=== PATIENT | male | born 1965 | race African-American/Black ===

== ENCOUNTER 2021-11-26 10:36 | Observation (INO) | payer OTHER, SELFPAY ==
[2021-11-26] VITALS (23 sets, daily range): BP systolic 142–189; BP diastolic 81–109; PULSE 66–79; RESP 10–22; TEMP 36.2–37.3; O2SAT 97–100; BMI 28.0
--- NOTE | 2021-11-26 | ECHO_ITS ---
Patient Info Name: Danny Stacy Age: 56 years : 1965 Gender: Male Ht: 70 in Wt: 192 lbs BSA: 2.09 m2 HR: 65 bpm BP: 169 / 107 mmHg Technical Quality: Good Exam Date: 11/26/2021 1:32 PM [facility] Patient Status: Outpatient Admit Date: 11/26/2021 Staff Ordering Physician: Gordo Spangler DO Drilling Contractor: Jose A Wang RDCS, RT Attending Provider: Howie Gutierrez MD Referring Physician: Aníbal BOLANOS; Exam Type: CA echo doppler color flow Study Info Indications I10 - Essential (primary) hypertension Complete two-dimensional, color flow and Doppler transthoracic echocardiogram is performed. Strain analysis performed. Summary 1. Complete two-dimensional, color flow and Doppler transthoracic echocardiogram is performed. 2. Left ventricular chamber dimension is normal. 3. Left ventricular systolic function is normal, estimated at 55-60%. 4. There is moderately increased left ventricular wall thickness. 5. The left ventricular diastolic function is grade I diastolic dysfunction. 6. E/e' 11 is mildly elevated. 7. Global longitudinal strain is abnormal at -11.7%. 8. Left atrial chamber dimension is mildly enlarged. 9. Right atrial chamber dimension is mildly enlarged. 10. There is mild mitral valve regurgitation. 11. There is trace tricuspid valve regurgitation. Left Ventricle E/e' 11 is mildly elevated. Global longitudinal strain is abnormal at -11.7%. Left ventricular chamber dimension is normal. Left ventricular systolic function is normal, estimated at 55-60%. There is moderately increased left ventricular wall thickness. The left ventricular diastolic function is grade I diastolic dysfunction. Right Ventricle Right ventricular systolic function is normal and with normal TAPSE 2.2 cm. Right ventricular chamber dimension is normal. Left Atria Left atrial chamber dimension is mildly enlarged. Right Atria Right atrial chamber dimension is mildly enlarged. Aortic Valve The aortic valve is trileaflet. There is no aortic valve stenosis. There is no aortic valve regurgitation. Pulmonic Valve There is no pulmonic regurgitation. Mitral Valve There is no mitral valve stenosis. There is mild mitral valve regurgitation. Tricuspid Valve RVSP is not calculated due to an inadequate TR jet. There is trace tricuspid valve regurgitation. Pericardium/Pleural There is no pericardial effusion. Inferior Vena Cava Normal inferior vena cava with >50% collapse upon inspiration consistent with normal right atrial pressure, 5 mmHg. Aorta The aortic root size at the sinus of Valsalva is normal. Left Ventricular Outflow Tract Name Value Normal LVOT 2D LVOT Diameter 2.3 cm LVOT Doppler LVOT Peak Gradient 3 mmHg LVOT Mean Gradient 2 mmHg LVOT VTI 18 cm LVOT VTI/AV VTI Ratio 0.8 LVOT Stroke Volume 74 ml LVOT CO 4.6 l/min LVOT CI 2.2 l/min/m2
--- NOTE | ~2021-11-26 | XR_ITS ---
EXAMINATION: XR chest 2V DATE: 11/26/2021 11:08 INDICATION: Intermittent midsternal chest pain. TECHNIQUE: Frontal and lateral views of the chest were obtained. COMPARISON: None. FINDINGS: There are lucencies in the lungs, consistent with emphysema. No pleural effusion or pneumot horax. The heart size is normal. 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 IMPRESSION: 1. Emphysema. Reviewed, dictated and finalized at location B. IMPRESSION: 1. Emphysema.
--- NOTE | 2021-11-26 10:48 | ECG_ITS ---
Measurements Intervals [place] Rate: 75 P: 45 CA: 187 QRS: 9 QRSD: 90 T: 189 QT: 386 QTc: 432 Interpretive Statements SINUS RHYTHM POSSIBLE LEFT ATRIAL ENLARGEMENT LEFT VENTRICULAR HYPERTROPHY AND ST-T CHANGE BORDERLINE ECG Electronically Signed On 11-26-2021 10:59:31 CDT by Gordo Spangler D.O.
--- NOTE | 2021-11-26 10:58 | ED.CHESTPAIN ---
HPI - Chest Pain General Chief Complaint: Chest Pain Stated Complaint: CP Time Seen by Provider: 11/26/21 10:58 Source: patient Mode of arrival: ambulatory Limitations: no limitations History of Present Illness HPI narrative: Patient is 56 years old -[place] male presents with intermittent chest pain over 6 months ago. Patient was seen by a family doctor for the first time 2 days ago and was told to go to the emergency room immediately, patient did not have a ride, and today found somebody to drop him off to the emergency room. Patient denies any difference between his chest pain today compared to yesterday or 6 months ago. Patient reports the pain comes anytime regardless what activity he is doing, and usually last maximum 3 minutes. The pain is heaviness tightness across the chest, radiating to the neck and upper back. Currently he is pain-free. He denies any fever, chills, nausea, vomiting, shortness of breath, respiratory symptoms. He smokes cigarettes and marijuana, drinks occasionally. Positive family history of coronary artery disease Related Data Allergies Allergy/AdvReac Type Severity Reaction Status Date / Time No Known Allergies Allergy Verified 11/26/21 10:48 Review of Systems Review of Systems: All systems reviewed & are unremarkable except as noted in HPI and below Exam Narrative: General appearance: Well-developed, well-nourished Skin: Normal color Head: Normocephalic, nontraumatic Eyes: Clear conjunctiva ENT: Oropharynx normal, ears normal, nose normal Neck: Supple, nontender Chest and respiratory: Airway patent, no respiratory distress, no accessory muscle use Heart: Regular rate/rhythm Abdomen: Soft, nontender, no organomegaly, quiet bowel sounds Vascular: Normal peripheral pulses, normal capillary refill. 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 Spangler Date: 11/26/21 Time: 11:30 Vital Signs Vital signs: Vital Signs Temperature 36.6 C 11/26/21 10:44 Pulse Rate 76 11/26/21 10:44 Respiratory Rate 18 11/26/21 10:44 Blood Pressure 181/109 H 11/26/21 10:44 Pulse Oximetry 100 11/26/21 10:44 Temperature 36.6 C 11/26/21 10:44 Pulse Rate 76 11/26/21 10:44 Respiratory Rate 18 11/26/21 10:44 Blood Pressure 181/109 H 11/26/21 10:44 Pulse Oximetry 100 11/26/21 10:44 MDM - Chest Pain Lab Data Result diagrams: 11/26/21 10:52 11/26/21 10:52 Labs: Lab Results 11/26/21 11/26/21 11/26/21 Range/Units 10:52 10:52 10:52 WBC 7.5 (4.5-10.0) K/mm3 RBC 4.79 (4.6-6.20) M/mm3 Hgb 13.9 L (14.0-18.0) g/dL Hct 44.2 (42.0-52.0) % MCV 92.3 (80-100) fl MCH 29.0 (26-34) pg MCHC 31.4 L (32-36) g/dl RDW 13.0 (11.5-14.5) % Plt Count 215 (150-375) k/mm3 MPV 10.5 H (7.4-10.4) fl Immature Gran % (Auto) 0.3 (0-0.5) % Neut % (Auto) 67.4 (45.5-73.1) % Lymph % (Auto) 22.0 (18.3-44.2) % [place] % (Auto) 9.1 H (2.6-8.5) % Eos % (Auto) 0.5 (0-4.4) % Baso % (Auto) 0.7 (0.2-1.2) % Lymph # (Auto) 1.64 (0.9-3.2) K/mm3 [place] # (Auto) 0.7 H (0.1-0.6) K/mm3 Eos # (Auto) 0.0 (0-0.3) K/mm3 Baso # (Auto) 0.1 (0.0-0.1) K/mm3 Abs Immat Gran (auto) 0.02 (0.00-0.031) K/mm3 Absolute Neuts (auto) 5.0 (1.3-6.7) K/mm3 Absolute Nucleated RBC 0.0 (0.0-0.012) K/mm3 Nucleated RBC % 0.0 (0.0-0.2) % PT 12.9 (11.1-14.7) Seconds INR 1.0 APTT 28.8 (22.3-36.8) SECONDS Sodium 138 (137-145) mmol/L Potassium 4.1 (3.4-5.0) mmol/
[2021-11-26 11:01] LABS: Basophils Absolute Auto 0.1 K/mm3 (0.0-0.1); Basophils Percent Auto 0.7 % (0.2-1.2); Eosinophils Percent Auto 0.5 % (0-4.4); Hematocrit 44.2 % (42.0-52.0); Hemoglobin 13.9 g/dL (14.0-18.0); Immature Granulocyte Absolute 0.02 K/mm3 (0.00-0.031); Immature Granulocyte Percent A 0.3 % (0-0.5); Lymphocytes Absolute Auto 1.64 K/mm3 (0.9-3.2); Mean Corpuscular HGB Conc 31.4 g/dl (32-36); Mean Corpuscular Volume 92.3 fl (80-100); Mean Platelet Volume 10.5 fl (7.4-10.4); Monocytes Absolute Auto 0.7 K/mm3 (0.1-0.6); Monocytes Percent Auto 9.1 % (2.6-8.5); Neutrophils Percent Auto 67.4 % (45.5-73.1); Platelet Count Result 215 k/mm3 (150-375); Red Blood Count 4.79 M/mm3 (4.6-6.20); White Blood Count 7.5 K/mm3 (4.5-10.0)
[2021-11-26 11:12] LABS: Partial Thromboplastin Time 28.8 SECONDS (22.3-36.8); Prothrombin Time 12.9 Seconds (11.1-14.7)
[2021-11-26 11:13] LABS: Alanine Aminotransferase 14 U/L (4-50); Albumin Level 4.4 g/dL (3.5-5.1); Alkaline Phosphatase 78 U/L (38-126); Anion Gap 5 mmol/L (8-16); Aspartate Amino Transferase 22 U/L (17-59); Bilirubin,Total 0.3 mg/dL (0.2-1.3); Blood Urea Nitrogen 15 mg/dL (9-20); Calcium 8.8 mg/dL (8.4-10.2); Carbon Dioxide 27 mmol/L (22-30); Chloride 106 mmol/L (98-107); Estimated CRCL calculation 76 ml/min; Estimated Glomerular Filt Rate > 60; Glucose 96 mg/dL (65-110); Lipase 39 U/L (23-300); Potassium 4.1 mmol/L (3.4-5.0); Sodium 138 mmol/L (137-145)
[2021-11-26 11:24] LABS: Troponin I < 0.012 ng/mL (0.000-0.034)
[2021-11-26] MEDS: ASPIRIN 81 MG CHEWABLE TABLET 324 MG PO (11:24)
[2021-11-26] MEDS: NITROGLYCERIN OINTMENT 1 INCH DOSE TRANSDERM (11:27)
[2021-11-26] MEDS: METOPROLOL TARTRATE INJ 5 MG/5 ML VIAL IV PUSH ×3 (11:28→12:28)
--- NOTE | 2021-11-26 11:57 | PM.CNCAR ---
Assessment and Plan Assessment and plan (1) Chest pain: Qualifiers: Chest pain type: unspecified Qualified Code(s): R07.9 - Chest pain, unspecified Code(s): R07.9 - Chest pain, unspecified Status: Acute Assessment and Plan: Differential includes costochondritis, CAD. Obtain Lipid panel. Serial troponin. If negative, obtain stress echo in AM. (2) Hypertension: Qualifiers: Hypertension type: unspecified Qualified Code(s): I10 - Essential (primary) hypertension Code(s): I10 - Essential (primary) hypertension Status: Acute Assessment and Plan: Received Metoprolol and NTG patch in ER. Start Losartan 100 mg daily. Monitor BP. Obtain echo. (3) Tobacco dependence: Code(s): F17.200 - Nicotine dependence, unspecified, uncomplicated Status: Acute Assessment and Plan: Counseled regarding smoking cessation. (4) COPD (chronic obstructive pulmonary disease): Qualifiers: COPD type: unspecified COPD Qualified Code(s): J44.9 - Chronic obstructive pulmonary disease, unspecified Code(s): J44.9 - Chronic obstructive pulmonary disease, unspecified Status: Acute History of Present Illness History of Present Illness Consult date/time: 11/26/21 11:57 Reason for consult: CP. 56 yr old man presents to ER with chest pain. His PCP is Dr. Sean Valdez. He has a history of hypertension, COPD, smoking. Reports he stopped taking BP medication in 2018 as he was not following up with his doctor. He reports intermittent sharp chest pain for last 6 months that occur randomly and primarily at rest. He can walk 1/2 mile without any problems. He smokes 5-6 cigarettes per day. Denies orthopnea, PND, edema, palpitations, dizziness. EKG: Sinus rhythm, LVH with ST-T changes, LAE. CXR: Emphysema. Trop 0. HB 13.9. Reason For Visit: CP Review of Systems Review of Systems: All systems reviewed & are unremarkable except as noted in HPI and below Constitutional: Constitutional: Reports as per HPI, Denies chills and Denies fever(s) Cardiovascular: Cardiovascular: Reports as per HPI, Reports chest pain, Denies irregular heart rhythm, Denies leg edema and Denies lightheadedness Respiratory: Respiratory: Reports as per HPI and Denies dyspnea Gastrointestinal: Gastrointestinal: Reports as per HPI and Denies abdominal pain Genitourinary: Genitourinary: Reports as per HPI and Denies dysuria Musculoskeletal: Musculoskeletal: Reports as per HPI Neurologic: Reports as per HPI, Denies dizziness and Denies syncope Meds Home Medications and Allergies Allergies Allergy/AdvReac Type Severity Reaction Status Date / Time No Known Allergies Allergy Verified 11/26/21 10:48 Vital Signs Vital Signs - 24 hr 11/26/21 10:44 11/26/21 11:28 Temperature 97.8 F Pulse Rate 76 71 Respiratory Rate 18 Blood Pressure 181/109 H Pulse Oximetry 100 Exam Const: General: cooperative, healthy appearing and comfortable Resp: Auscultation: clear to auscultation bilaterally, no crackles, no rales, no rhonchi and no wheezes Cardio: Jugular venous distension: no JVD Rate: regular rate Rhythm: regular rhythm Heart sounds: no murmurs Peripheral pulses: dorsalis pedis present GI: GI Palp: No abdominal tenderness and Yes Soft to palpation Neuro: General: oriented to person, oriented to place and oriented to time Extrem: Right lower extremity: no edema Left lower extremity: no edema Results Labs and Meds Result diagrams: 11/26/21 10:52 11/26/21 10:52 Lab results: Cardiac Enzymes 11/26/21 Range/Units 10:52 AST 22 (17-59) U/L Troponin I < 0.012 (0.000-0.034) ng/mL Coagulation 11/26/21 Range/Units 10:52 PT 12.9 (11.1-14.7) Seconds APTT 28.8 (22.3-36.8) SECONDS CBC 11/26/21 Range/Units 10:52 WBC 7.5 (4.5-10.0) K/mm3 RBC 4.79 (4.6-6.20) M/mm3 Hgb 13.9 L (14.0-18.0) g/dL H
[2021-11-26 12:54] LABS: Cholesterol 193 mg/dL (0-200); HDL Direct 53 mg/dL; Triglycerides 72 mg/dL (<150)
[2021-11-26 12:58] LABS: SARS-CoV-2 RNA PCR Negative
[2021-11-26 13:05] LABS: LDL Cholesterol Direct 98 mg/dL
[2021-11-26] MEDS: LOSARTAN POTASSIUM 100 MG TABLET PO (13:40)
--- NOTE | 2021-11-26 14:20 | ADMGEN ---
This patient, Danny Stacy, was admitted to IMU Room 205-02. Patient/family oriented to hospital policies and general routines including ID bracelet, bed and alarms, visiting hours, pain management, procedures, bathroom and other care routines, personal items, smoking policy, room service/diet, and visiting hours. Information on how to activate the Rapid Response Team has been discussed. Patient/Family are encouraged to report perceived risks to care and to ask questions if they do not understand what they are told or what they should do.
[2021-11-26 15:22] LABS: Troponin I < 0.012 ng/mL (0.000-0.034)
--- NOTE | 2021-11-26 16:00 | PM.IMHP ---
H&P: HPI History of Present Illness Date/Time: 11/26/21 16:00 Chief Complaint: Chest pain shortness of breath. Narrative: This is a pleasant 56-year-old male smoker with hypertension who presented to the emergency department for evaluation of intermittent chest pain and shortness of breath for the past 6 months. He stopped taking antihypertensives in 2018 as his blood pressures were reportedly better though he has not seen a physician since that time. He has been doing pretty well up until the last 6 months when he has developed intermittent and random mid chest pain that he describes as sharp in nature. The pain does occasionally radiate to the neck and upper back but it is self-limiting, usually not lasting any longer than a couple of minutes. He sees no pattern as to when it occurs and he has not specifically noticed that it occurs with exertion nor is it related to food. He also endorses shortness of breath though he goes on to say he can walk half a mile or so without any symptoms. He established care with Dr. Valdez 2 days ago at which time he was encouraged to come to the ER. He did not have a ride yesterday but was able to make it here today. EKG showed findings consistent with left ventricular hypertrophy and some nonspecific ST-T changes as well as suspected left atrial enlargement. Troponin has been negative thus far. Chest x-ray did demonstrate findings consistent with emphysema. At the time my evaluation he is resting comfortably and has no significant complaints aside from those listed above. Review of Systems Review of Systems: Twelve systems were reviewed. No syncope or presyncope. No fever, chills, or sweats. No recent cold or flu symptoms. He denies pleuritic pain and palpitations. No orthopnea, PND, or lower extremity edema. He has no known history of cardiac or pulmonary disease. No cough. No history of venous thromboembolism. Except as documented, all other systems were reviewed and are negative. [facility] Past Medical History Medical History Chronic obstructive pulmonary disease Emphysema on chest x-ray on 11/26/2021. Hypertension Tobacco dependence Surgical History Surgical History (Updated 11/26/21 @ 22:50 by Danita Clarke PA-C) History of open reduction and internal fixation (ORIF) procedure Left hand fracture. Family History Family History (Updated 11/26/21 @ 22:51 by Danita Clarke PA-C) Mother Cerebrovascular accident Father Cirrhosis Alcohol abuse Sibling Acute myocardial infarction Cancer Sibling Asthma Sibling Pulmonary embolism Social History Social History (Updated 11/26/21 @ 22:51 by Danita Clarke PA-C) Social History: Surrogate decision maker: Kenton Kenny, nephew. Code status: Full code. Smoking packs per day: 0.05 Smoking cigarettes per day: 1.0 Years smoked: 30 Smoking pack-years: 1.50 Smoking status: Current every day smoker Tobacco type: cigarettes Additional smoking assessment comments: Now smoking 5 to 6 cigarettes a day. Alcohol intake: current Drinks per week: 1 Substance use: current Substance use type: marijuana Spiritual care concerns: No Meds Home Medications and Allergies Home Medications Medication Instructions Recorded Confirmed Type No Home Medications 11/26/21 11/26/21 History Allergies Allergy/AdvReac Type Severity Reaction Status Date / Time No Known Allergies Allergy Verified 11/26/21 10:48 Vital Signs Vital Signs - 24 hr 11/26/21 10:44 11/26/21 10:45 11/26/21 10:46 Temperature 97.8 F Pulse Rate 78 79 79 Respiratory Rate 13 19 14 Blood Pressure 181/109 H 177/106 H 181/109 H Pulse Oximetry 97 100 98 11/26/21 10:47 11/26/21 11:00 11/26/21 11:01 Temperature Pulse Rate 76 78 78 Respiratory Rate 16 12 12 Blood Pressure 181/107 H Pulse Oximetry 98 100 99 11/26/21 11:15 11/26
[2021-11-26] MEDS: ACETAMINOPHEN 325 MG TABLET 650 MG PO (16:38)
[2021-11-26 17:40] LABS: Troponin I < 0.012 ng/mL (0.000-0.034)
[2021-11-27] VITALS (7 sets, daily range): BP systolic 151–187; BP diastolic 87–94; PULSE 67–84; RESP 12–16; TEMP 36.3–37.3; O2SAT 99
--- NOTE | 2021-11-27 06:00 | ECG_ITS ---
Measurements Intervals [place] Rate: 64 P: 46 CO: 191 QRS: 3 QRSD: 89 T: 184 QT: 402 QTc: 416 Interpretive Statements SINUS RHYTHM LEFT VENTRICULAR HYPERTROPHY AND ST-T CHANGE BORDERLINE ECG Electronically Signed On 11-27-2021 12:25:35 CDT by Gordo Spangler D.O.
--- NOTE | 2021-11-27 08:16 | PM.PNCARD ---
Progress Note: A&P Assessment and Plan (1) Chest pain: Qualifiers: Chest pain type: unspecified Qualified Code(s): R07.9 - Chest pain, unspecified Code(s): R07.9 - Chest pain, unspecified Status: Acute Assessment and Plan: Differential includes costochondritis, CAD. Lipid panel is normal. ND r/o by serial troponin and EKG. Obtain stress echo today. If negative, may d/c home from cardiology standpoing.. (2) Hypertension: Qualifiers: Hypertension type: unspecified Qualified Code(s): I10 - Essential (primary) hypertension Code(s): I10 - Essential (primary) hypertension Status: Acute Assessment and Plan: Received Metoprolol and NTG patch in ER. Echo on 11/26/21 EF 55-60%, mod LVH, grade I diastolic dysfunction (E/e' 11), mild MR/TR. Started Losartan 100 mg daily. Monitor BP. (3) Tobacco dependence: Code(s): F17.200 - Nicotine dependence, unspecified, uncomplicated Status: Acute Assessment and Plan: Counseled regarding smoking cessation. (4) COPD (chronic obstructive pulmonary disease): Qualifiers: COPD type: unspecified COPD Qualified Code(s): J44.9 - Chronic obstructive pulmonary disease, unspecified Code(s): J44.9 - Chronic obstructive pulmonary disease, unspecified Status: Acute Subjective Date/time seen: 11/27/21 08:16 Reports intermittent sharp chest pains at rest. No sob. Exam Const: General: cooperative, healthy appearing and comfortable Resp: Auscultation: clear to auscultation bilaterally, no crackles, no rales, no rhonchi and no wheezes Cardio: Jugular venous distension: no JVD Rate: regular rate Rhythm: regular rhythm Heart sounds: no murmurs Peripheral pulses: dorsalis pedis present GI: GI Palp: No abdominal tenderness and Yes Soft to palpation Neuro: General: oriented to person, oriented to place and oriented to time Extrem: Right lower extremity: no edema Left lower extremity: no edema Objective Data Vital Signs Vital Signs: Vital Signs - 24 hr 11/26/21 10:44 11/26/21 10:45 11/26/21 10:46 Temperature 97.8 F Pulse Rate 78 79 79 Respiratory Rate 13 19 14 Blood Pressure 181/109 H 177/106 H 181/109 H Pulse Oximetry 97 100 98 11/26/21 10:47 11/26/21 11:00 11/26/21 11:01 Temperature Pulse Rate 76 78 78 Respiratory Rate 16 12 12 Blood Pressure 181/107 H Pulse Oximetry 98 100 99 11/26/21 11:15 11/26/21 11:27 11/26/21 11:28 Temperature Pulse Rate 71 76 71 Respiratory Rate 16 22 H Blood Pressure 189/97 H Pulse Oximetry 100 100 11/26/21 11:30 11/26/21 11:31 11/26/21 11:45 Temperature Pulse Rate 69 70 72 Respiratory Rate 14 14 16 Blood Pressure 171/103 H Pulse Oximetry 100 99 100 11/26/21 12:00 11/26/21 12:01 11/26/21 12:15 Temperature Pulse Rate 68 70 67 Respiratory Rate 10 L 15 18 Blood Pressure 169/107 H Pulse Oximetry 100 100 100 11/26/21 12:28 11/26/21 14:11 11/26/21 14:55 Temperature 98.7 F Pulse Rate 70 67 67 Respiratory Rate 16 18 Blood Pressure 161/95 H 167/97 H Pulse Oximetry 100 100 11/26/21 16:00 11/26/21 18:00 11/26/21 20:00 Temperature 97.2 F L 99.2 F Pulse Rate 68 73 71 Respiratory Rate 16 20 Blood Pressure 167/93 H 142/81 H Pulse Oximetry 100 98 11/26/21 22:00 11/26/21 23:49 11/27/21 00:00 Temperature 98.5 F Pulse Rate 68 72 67 Respiratory Rate 12 12 Blood Pressure 153/92 H Pulse Oximetry 99 99 11/27/21 02:00 11/27/21 04:00 11/27/21 06:00 Temperature 97.8 F Pulse Rate 68 79 70 Respiratory Rate 12 Blood Pressure 151/93 H Pulse Oximetry 99 Intake/Output Intake/Output: Intake & Output 11/24/21 11/25/21 11/26/21 11/27/21 23:59 23:59 23:59 23:59 Intake Total 840 200 Balance 840 200 Meds/Results Medications: Active Medications Generic Name Dose Route Start Last Admin Trade Name Freq PRN Reason Stop Dose Admin Acetaminophen 650 mg 11/26/21
[2021-11-27] MEDS: ASPIRIN 81 MG CHEWABLE TABLET PO (08:34)
[2021-11-27] MEDS: LOSARTAN POTASSIUM 100 MG TABLET PO (08:34)
--- NOTE | 2021-11-27 09:00 | EST_ITS ---
Patient Info Name: Danny Stacy Age: 56 years : 1965 Gender: Male Ht: 70 in Wt: 192 lbs BSA: 2.09 m2 HR: 73 bpm BP: 175 / 67 mmHg Heart Rhythm: Sinus Rhythm Technical Quality: Good Exam Date: 11/27/2021 9:44 AM Exam Location: [facility] Pulmonary Exam Room: [facility] Patient Status: Outpatient Admit Date: 11/26/2021 Staff Ordering Physician: Gordo Spangler DO Report Analyst: Lorena Pruitt RDCS Attending Provider: Howie Gutierrez MD Referring Physician: Aníbal BOLANOS; Exercise Technologist: Shauna Swift CT Exercise Physician: Gordo Spangler DO Exam Type: CA stress echo Study Info Indications - chest pain Treadmill exercise stress echocardiogram is performed. Summary 1. 1. Negative Ken exercise stress test for ischemic ST changes by ECG criteria. Patient achieved 81% MPHR for age group which reduces sensitivity of the test. 2. 2. Reduced functional capacity, achieving 10 METs of workload. 3. 3. Baseline hypertension with hypertensive response to exercise. 4. 4. Appropriate HR response to exercise. 5. 5. Appropriate HR recovery at 1 minute post exercise. 6. 6. Negative stress echocardiogram for ischemia by wall motion analysis. 7. 7. Patient informed of the above results. Stress Echo Findings Left Ventricle Appropriate increase in LV endocardial thickening with systole. Appropriate augmenation of contractility with systole. No wall motion abnormality. Left Ventricle Normal LV systolic function, no wall motion abnormality. Protocol: [place] HR: 73 bpm Peak HR: 134 bpm Rest Sys BP: 175 mmHg Peak Sys BP: 250 mmHg Max Pred HR: 165 bpm % Max Pred HR: 81 % Target HR: 140 bpm Max RPP: 33,500 bpm*mmHg BP Response: Patient exhibited a hypertensive response with stress Termination Reason: Reached target heart rate or workload Cardiac Symptoms: Shortness of breath Max ST Seg Deviation: 73.00 mm Total Time: 7 min : 48 sec Rest Ferrer BP: 67 mmHg Peak Ferrer BP: 96 mmHg Total METS: 10.1 Resting ECG Sinus rhythm, LVH with ST-T changes. Stress ECG No ST changes. Arrhythmias None. Report Signatures Stress ECG Echo
--- NOTE | 2021-11-27 11:17 | PM.DS ---
DS: Admitting Diagnosis Discharge Date 11/27/2021 Admitting Diagnosis Chest pain DS: Discharge Diagnosis Discharge Diagnosis (1) Chest pain: Qualifiers: Chest pain type: unspecified Qualified Code(s): R07.9 - Chest pain, unspecified Code(s): R07.9 - Chest pain, unspecified Status: Acute Assessment and Plan: Patient reports intermittent chest pain and shortness of breath the past 6 months, atypical for cardiac pain. Troponin has been negative EKG showed LVH and ST-T changes. Echocardiogram shows diastolic dysfunction and left ventricular hypertrophy Probably related to hypertensive urgency Start aspirin 81 mg daily. Stress test negative Follow-up with cardiology as outpatient. (2) Shortness of breath: Code(s): R06.02 - Shortness of breath Status: Acute Assessment and Plan: May very well be related to emphysema and hypertensive urgency noted on imaging. Echocardiogram shows diastolic dysfunction no evidence of acute CHF exacerbation Smoking cessation is encouraged. Would benefit from pulmonology referral. 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 Counseling regarding smoking (4) Tobacco dependence: Code(s): F17.200 - Nicotine dependence, unspecified, uncomplicated Status: Acute Assessment and Plan: Smoking cessation is imperative and was discussed. He seems motivated to quit. (5) Hypertension: Qualifiers: Hypertension type: unspecified Qualified Code(s): I10 - Essential (primary) hypertension Code(s): I10 - Essential (primary) hypertension Status: Acute Assessment and Plan: Untreated hypertension may be the cause of some of his symptoms. Reinitiate medication as blood pressure has been as high as 189/97. Losartan 100 mg daily amlodipine hydrochlorothiazide aspirin. DS: Summary Hospital Course Hospital Course: 56 years old male presented to the hospital with chest pain associated with hypertensive urgency cardiology was consulted stress test was negative blood pressure medication was adjusted patient was discharged in good condition most likely chest pain related to hypertensive urgency follow-up with cardiology and PCP as outpatient Time Spent with Patient Time attestation: Total time spent providing and/or coordinating discharge services: 35 minutes Exam Narrative: Alert Chest no wheeze crackles Abdomen nontender nondistended CVS S1 + S2 Lower extremity edema DS: Data Data Completed and Pending Labs on day of discharge: Labs from last 24 hours 11/26/21 11/26/21 11/26/21 17:08 14:36 12:17 Troponin I < 0.012 < 0.012 Triglycerides Cholesterol LDL Cholesterol Direct HDL Direct SARS-CoV-2 RNA (RT-PCR) Negative 11/26/21 11/26/21 10:52 10:52 Troponin I < 0.012 Triglycerides 72 Cholesterol 193 LDL Cholesterol Direct 98 HDL Direct 53 SARS-CoV-2 RNA (RT-PCR) Discharge Plan Discharge Attending physician on discharge: Flako Disla M.A. Consulting providers: Gordo Spangler ; Danita Clarke ; Edenilson Gilmore V. Discharging Clinician: Flako Disla M.A. Patient Disposition: Home, Self-Care Activity: as tolerated Diet: heart healthy Patient Instructions: How to Stop Smoking (DC), Chronic Hypertension (DC) Stand Alone Forms: General Discharge Information Follow-up/Referrals: Gordo Spangler DO [Physician] - Sean Valdez MD [Primary Care Provider] - Discharge Medications: New albuterol sulfate [Proventil HFA] 90 mcg/actuation Hfa Aerosol Inhaler 2 puff inhalation QIDRT PRN (Reason: Shortness Of Breath or wheezin) Qty: 6.7 RF: 0 aspirin [Children's Aspirin] 81 mg Tablet,Chewable 81 mg PO DAILY@0800 Qty: 30 RF: 0
[2021-11-27 11:36] LABS: Basophils Percent Auto 0.4 % (0.2-1.2); Eosinophils Absolute Auto 0.1 K/mm3 (0-0.3); Eosinophils Percent Auto 0.7 % (0-4.4); Hematocrit 46.5 % (42.0-52.0); Hemoglobin 14.3 g/dL (14.0-18.0); Immature Granulocyte Absolute 0.02 K/mm3 (0.00-0.031); Immature Granulocyte Percent A 0.2 % (0-0.5); Lymphocytes Absolute Auto 1.75 K/mm3 (0.9-3.2); Lymphocytes Percent Auto 19.6 % (18.3-44.2); Mean Corpuscular HGB Conc 30.8 g/dl (32-36); Mean Corpuscular Hemoglobin 28.7 pg (26-34); Mean Corpuscular Volume 93.2 fl (80-100); Mean Platelet Volume 10.4 fl (7.4-10.4); Monocytes Absolute Auto 0.8 K/mm3 (0.1-0.6); Monocytes Percent Auto 8.4 % (2.6-8.5); Neutrophils Absolute Auto 6.3 K/mm3 (1.3-6.7); Neutrophils Percent Auto 70.7 % (45.5-73.1); Platelet Count Result 225 k/mm3 (150-375); Red Blood Count 4.99 M/mm3 (4.6-6.20); Red Cell Distribution Width 13.2 % (11.5-14.5); White Blood Count 8.9 K/mm3 (4.5-10.0)
[2021-11-27 11:47] LABS: Alanine Aminotransferase 13 U/L (4-50); Albumin Level 4.5 g/dL (3.5-5.1); Alkaline Phosphatase 75 U/L (38-126); Anion Gap 5 mmol/L (8-16); Aspartate Amino Transferase 20 U/L (17-59); Bilirubin,Total 0.5 mg/dL (0.2-1.3); Blood Urea Nitrogen 10 mg/dL (9-20); Carbon Dioxide 27 mmol/L (22-30); Chloride 104 mmol/L (98-107); Estimated CRCL calculation 76 ml/min; Estimated Glomerular Filt Rate > 60; Glucose 103 mg/dL (65-110); Potassium 4.5 mmol/L (3.4-5.0); Sodium 136 mmol/L (137-145)
[2021-11-27 11:52] LABS: D Dimer 0.39 ug/mL (<0.48)
== END 2021-11-27 18:00 | disposition home or self-care (01) ==
LOC: ANHED 11:53 → ANHIMU 15:23
PROVIDERS: Internal Medicine Cardiovascular Disease; Admitting Provider Internal Medicine; Emergency Provider Emergency Medicine; PCP Emergency Medicine; Visit Provider Internal Medicine
DX: R07.89 Other chest pain (principal); R06.02 Shortness of breath; J43.9 Emphysema, unspecified; I10 Essential (primary) hypertension; F17.210 Nicotine dependence, cigarettes, uncomplicated; Z20.822 Contact with and (suspected) exposure to COVID-19
CPT/HCPCS: 36415; 71046; 80053; 80061; 83690; 84484; 85025; 85380; 85610; 85730; 93005; 93306; 93351; 96374; 96376; 99285; A9270; C9803; G0378; G0379; U0003; U0005

== ENCOUNTER 2021-12-17 11:07 | Outpatient (CLI) | payer OTHER, SELFPAY ==
--- NOTE | ~2021-12-17 | XR_ITS ---
XR lumbar spine 2-3V 12/17/2021 11:38 Indication: Back pain Procedure: 3 views lumbar spine Comparison: No prior studies for comparison. Findings: Vertebral body heights are maintained. There is mild disc narrowing at L4-5. There is mild multilevel facet hypertrophy. No acute fracture, subluxation or dislocation. No evidence for spondylo listhesis. Mild dextrocurvature of the lumbar spine. Impression: 1: Mild lumbar spondylosis. Reviewed, dictated and finalized at location A. Impression: 1: Mild lumbar spondylosis.
[2021-12-17 11:43] LABS: Appearance Urine Clear (Clear); Bilirubin Urine Negative (Negative); Color Urine Yellow (Yellow); Glucose Urine UA Negative (Negative); Ketones Urine Negative (Negative); Leukocyte Esterase Ur Negative LEU/UL (NEGATIVE); Nitrate Urine Negative (Negative); Protein Urine Negative (Negative); Specific Grav Ur 1.015 (1.001-1.035); Urobilinogen Urine 0.2 mg/dL (<2.0)
[2021-12-17 11:49] LABS: Add Urine Microscopic? YES; Blood Urine Trace-Intact (Negative)
[2021-12-17 11:53] LABS: RBC Urine 0-2 /hpf (0-2); Squamous Epithelial Cell Urine Rare /hpf (Few); WBC Urine 0-3 /hpf (0-3)
[2021-12-17 11:54] LABS: MALB Creatinine Ratio < 13.3 mg/g (0-30); Microalbumin Urine Random < 6.0 mg/L (0-16.7)
[2021-12-17 12:17] LABS: Prostate Specific Antigen 2.1 ng/mL (< OR = 4.0); Thyroid Stimulating Hormone 0.668 uIU/mL (0.465-4.680)
[2021-12-17 12:52] LABS: Free T4 Free Thyroxine 1.39 ng/mL (0.78-2.19); Vitamin D 25 Hydroxy 30.1 ng/mL
== END 2021-12-17 11:08 | disposition home or self-care (01) ==
LOC: ANHLAB 11:10
PROVIDERS: PCP Emergency Medicine; Visit Provider Emergency Medicine
DX: J44.9 Chronic obstructive pulmonary disease, unspecified (principal); I10 Essential (primary) hypertension; R20.0 Anesthesia of skin; M47.816 Spondylosis without myelopathy or radiculopathy, lumbar region
CPT/HCPCS: 36415; 72100; 81001; 82043; 82306; 84153; 84439; 84443

== ENCOUNTER 2021-12-31 10:41 | Outpatient (CLI) | payer OTHER, SELFPAY | END 2021-12-31 10:42 | disposition home or self-care (01) | LOC: ANHLAB 10:42 | PROVIDERS: PCP Emergency Medicine; Visit Provider Emergency Medicine | DX: J44.9 Chronic obstructive pulmonary disease, unspecified (principal); I10 Essential (primary) hypertension | CPT/HCPCS: 36415; 83036 ==